=== PATIENT | male | born 1985 | race Caucasian/White ===

== ENCOUNTER 2017-09-28 05:34 | Emergency (ER) | payer OTHER ==
[2017-09-28] MEDS ORDERED: IBUPROFEN 200 MG TAB PO ONE (05:49)
--- NOTE | 2017-09-28 05:52 | ED.PDOC ---
History of Present Illness - General Chief Complaint: Fever Stated Complaint: fever, headache, cough, congestion Time Seen by Provider: 09/28/17 05:48 Source: patient Exam Limitations: no limitations - History of Present Illness Initial Comments: the patient is a 32-year-old male presenting to the emergency room secondary to 10 hours of symptoms of cough and fever. No real sore throat but he does have a runny nose. No history of asthma but he does have some mild scattered wheezing. No chest pain or shortness of breath. No syncope or near syncope. He does have some body aches. Influenza is rampant in the community at the moment. Severity: moderate Improving Factors: nothing Worsening Factors: nothing Associated Symptoms: cough, diaphoresis, fever/chills, malaise Allergies/Adverse Reactions: Allergies NO KNOWN ALLERGY Allergy (Verified 02/23/14 17:56) Home Medications: Ambulatory Orders Albuterol Sulfate [Proair Hfa] 2 puff INH Q6H #1 inhaler 09/28/17 Oseltamivir Phosphate [Tamiflu] 75 mg PO BID #10 cap 09/28/17 Review of Systems - Review of Systems Constitutional: States: diaphoresis, fever, malaise EENTM: States: nose congestion. Denies: ear pain, throat pain Respiratory: States: cough, wheezing. Denies: orthopnea, short of breath Cardiology: States: no symptoms reported Gastrointestinal/Abdominal: States: no symptoms reported Genitourinary: States: no symptoms reported Musculoskeletal: States: no symptoms reported Skin: States: no symptoms reported Neurological: States: no symptoms reported Endocrine: States: no symptoms reported All other Systems: No Change from Baseline Family Medical History - Family History Mother Family History: No Known Physical Exam - Physical Exam General Appearance: Alert, No apparent distress, Other - he is interactive and appropriate however heis diaphoretic Eye Exam: bilateral normal Ears, Nose, Throat: hearing grossly normal, nasal congestion Neck: full range of motion, supple Respiratory: no respiratory distress, no accessory muscle use, wheezing - scattered and fine. Normal air movement. No rhonchi at this time. Cardiovascular/Chest: normal peripheral pulses, no edema Peripheral Pulses: radial,right: 2+, radial,left: 2+, dorsalis pedis,right: 2+, dorsalis pedis,left: 2+ Gastrointestinal/Abdominal: non tender - obese, soft Rectal Exam: deferred Back Exam: normal inspection, no CVA tenderness Extremity: normal range of motion, non-tender, normal inspection, no pedal edema , normal capillary refill Neurologic: ase master mechanic II-XII nml as tested, no motor/sensory deficits, alert, normal mood/affect, oriented x 3 Skin Exam: normal color Progress - Progress Progress: 09/28/17 06:37 the patient is a 32-year-old male presenting with less than 24 hours of symptoms that appear to be due to the flu. He has tested positive for flu a. additionally he does appear to have a reactive airway component likely triggered by this. The patient will be written for an albuterol inhaler to use 2 puffs every 6 hours for the next week and as needed. Motrin and Tylenol can be used to reduce symptoms. he needs to keep himself well-hydrated. He should follow up with his primary care doctor on Monday for reevaluation of his lung goldman before the weekend. ER warnings are given for any significant worsening. Departure - Departure Clinical Impression: Influenza A Reactive airway disease with wheezing Qualifiers: Asthma severity: unspecified severity Asthma complication type: with acute exacerbation Qualified Code(s): J45.901 - Unspecified asthma with (acute) exacerbation Disposition: Discharge to Home or Self Care Condition: Fair Departure Forms: ED Discharge - Pt. Copy, Patient Portal Self Enrollment Instructions: DI for Asthma -- Adult, DI for Influenza -- Adult Diet: regular diet Activity: increase activity as tolerated Prescriptions: Albuterol Sulfate [Proair Hfa] 2 puff INH Q6H #1 inhaler Oseltamivir Phosphate [Tamiflu] 75 mg PO BID #10 cap Home Medications: Ambulatory Orders Albuterol Sulfate [Proair Hfa] 2 puff INH Q6H #1 inhaler 09/28/17 Oseltamivir Phosphate [Tamiflu] 75 mg PO BID #10 cap 09/28/17 Additional Instructions: the patient is a 32-year-old male presenting with less than 24 hours of symptoms that appear to be due to the flu. He has tested positive for flu a. additionally he does appear to have a reactive airway component likely triggered by this. The patient will be written for an albuterol inhaler to use 2 puffs every 6 hours for the next week and as needed. Motrin and Tylenol can be used to reduce symptoms. he needs to keep himself well-hydrated. He should follow up with his primary care doctor on Monday for reevaluation of his lung goldman before the weekend. ER warnings are given for any significant worsening.
[2017-09-28] MEDS ORDERED: IPRATROPIUM/ALBUTEROL 3 ML VIAL NEB ONE (05:53)
[2017-09-28 06:13] VITALS: O2SAT 96
[2017-09-28 06:46] VITALS: BP 129/80; TEMP 97.9
== END 2017-09-28 06:46 | disposition home or self-care (01) ==
LOC: ER 05:34
DX: J10.1 Influenza due to other identified influenza virus with other respiratory manifestations (principal); J45.901 Unspecified asthma with (acute) exacerbation
CPT/HCPCS: 87502; 94640; J7620

== ENCOUNTER 2020-04-15 13:27 | Emergency (ER) | payer OTHER ==
[2020-04-15 13:44] VITALS: TEMP 97.8
--- NOTE | 2020-04-15 14:14 | ED.PDOC ---
History of Present Illness - General Chief Complaint: ENT Problem Stated Complaint: aching, sorethroat, ear pain Time Seen by Provider: 04/15/20 13:35 - History of Present Illness Initial Comments: 34 M + pmh presents to ED c/o acute onset of diarrhea with associated generalized body aches, intermittent headache, sore throat, and right ear discomfort. Pt states his has a sore throat as well but denies any other known recent sick contacts. No alleviating/aggravating factors. Denies h/o similar sx's. Denies associated cough, CP, SOB, f/c, n/v. Pt has no other complaints at this time. Allergies/Adverse Reactions: Allergies NO KNOWN ALLERGY Allergy (Verified 04/15/20 13:44) Home Medications: Ambulatory Orders Albuterol Sulfate [Proair Hfa] 2 puff INH Q6H #1 inhaler 09/28/17 Oseltamivir Phosphate [Tamiflu] 75 mg PO BID #10 cap 09/28/17 Amoxicillin 500 mg PO BID 10 Days #20 tab 04/15/20 Review of Systems - Review of Systems Constitutional: Denies: chills, fever EENTM: States: ear pain, throat pain. Denies: eye pain, nose pain, nose co ngestion Respiratory: Denies: cough, short of breath Cardiology: Denies: chest pain, palpitations Gastrointestinal/Abdominal: States: diarrhea. Denies: abdominal pain, nausea, vomiting Genitourinary: Denies: dysuria, frequency Musculoskeletal: States: muscle pain - + generalized bodyaches. Denies: joint pain Skin: Denies: change in color, rash Neurological: States: headache. Denies: weakness Past Medical History (General) - Patient Medical History Hx Seizures: No Hx Asthma: Yes Hx Hypertension: No Hx Gastroesophageal Reflux: No Hx Renal Disease: No Surgical History: other - Vaccination History Hx Tetanus, Diphtheria Vaccination: Yes Hx Influenza Vaccination: No Hx Pneumococcal Vaccination: No - Social History Hx Tobacco Use: Yes Hx Chewing Tobacco Use: Yes Hx Alcohol Use: Yes - occasional Hx Substance Use: No Hx Substance Use Treatment: No Hx Depression: No Family Medical History - Family History Mother Family History: No Known Physical Exam - Physical Exam General Appearance: Alert, Comfortable, No apparent distress Eye Exam: bilateral normal, bilateral conjunctivae pale - no scleral icterus Ears, Nose, Throat: other - tonsils 2+ and symmetric bilaterally, peritonsillar arch and pharyngeal erythema, no exudates, no petechia, uvula midline, patent airway Neck: full range of motion, supple, lymphadenopathy (R), other - right cervical lymphadenopathy with minimal TTP Respiratory: lungs clear, normal breath sounds, no respiratory distress, no accessory muscle use Cardiovascular/Chest: normal peripheral pulses, no edema, no gallop, no JVD, no murmur, tachycardia - intermittent and minimal, other - regular rhythm Gastrointestinal/Abdominal: normal bowel sounds, non tender, soft Extremity: normal inspection, no pedal edema Neurologic: alert, normal mood/affect, oriented x 3 Skin Exam: normal color, warm/dry, other - no rash Progress - Progress Progress: Presents with likely URI vs strep vs less likely COVID. I will perform labs provide appropriate pharmacotherapy, and continue to monitor/reassess. Dispo will depend on lab results and overall course in ED; however, discharge home is expected with f/u, education, and possible rx. 14:46 Rechecked pt. NAD, VSS. I have discussed lab results, my clinical impression, and diagnosis. I have also discussed plan for discharge home with f/u, education, and prescription medications. ED return precautions provided. Pt voices understanding, agrees with plan, and all questions answered. Jamar Salcido DO Emergency Medicine Physician [facility][id number] - Results/Orders Results/Orders: Laboratory Tests 04/15/20 14:11 Group A Strep Rapid Positive H Vital Signs - 24 hr 04/15/20 13:38 Temperature 97.8 F Pulse Rate [ 102 H pulse ox] Respiratory 20 Rate Blood Pressure 151/102 [Left Arm] O2 Sat by Pulse 96 Oximetry Departure - Departure Clinical Impression: Strep pharyngitis, Otalgia, right ear Time of Disposition: 14:43 Disposition: Discharge to Home or Self Care Condition: Excellent Departure Forms: ED Discharge - Pt. Copy, Patient Portal Self Enrollment Instructions: DI for Ear Pain-Adult, Sore Throat, Adult (DC) Diet: resume usual diet Referrals: UNKNOWN,PHYSICIAN [Primary Care Provider] - 1 Week Prescriptions: Amoxicillin 500 mg PO BID 10 Days #20 tab Home Medications: Ambulatory Orders Albuterol Sulfate [Proair Hfa] 2 puff INH Q6H #1 inhaler 09/28/17 Oseltamivir Phosphate [Tamiflu] 75 mg PO BID #10 cap 09/28/17 Amoxicillin 500 mg PO BID 10 Days #20 tab 04/15/20
[2020-04-15] MEDS: DEXAMETHASONE 4 MG TAB PO ONE (15:03)
[2020-04-15 15:08] VITALS: BP 139/93; O2SAT 95
== END 2020-04-15 15:08 | disposition home or self-care (01) ==
LOC: ER 13:27
DX: J02.0 Streptococcal pharyngitis (principal); H92.01 Otalgia, right ear; R19.7 Diarrhea, unspecified; J45.909 Unspecified asthma, uncomplicated; Z87.891 Personal history of nicotine dependence
CPT/HCPCS: 87635; 87880; J8540